=== PATIENT | male | born 1955 | race Caucasian/White ===

== ENCOUNTER 2016-08-09 14:48 | Emergency (ER) | payer SELFPAY ==
[~2016-08-09] VITALS: Ht 180.3 cm; Wt 113.6 kg
[2016-08-09 15:27] LABS: HEMATOCRIT 44.8 % (38.0-50.0); MCH 29.7 PG (29.0-34.0); MEAN PLAT.VOLUME 9.2 uM^3 (9.0-12.4); PLATELET COUNT 436 K/uL (156-360); RBC DIS.WIDTH-CV 13.7 % (11.8-14.6); RBC DIS.WIDTH-SD 45.1 % (39-53); RED BLOOD COUNT 4.98 M/uL (4.00-5.50)
[2016-08-09 15:36] LABS: CHLORIDE 109 mEq/L (99-109); POTASSIUM 4.2 mEq/L (3.7-5.4); SODIUM 140 mEq/L (136-147)
[2016-08-09 15:37] LABS: GLUCOSE 120 mg/dL (70-99)
[2016-08-09 15:39] LABS: ANION GAP 12 MEQ/L (2-14)
[2016-08-09 15:41] LABS: GFR ESTIMATE (CALCULATED) > 59 mL/min/
[2016-08-09 15:42] LABS: UREA NITROGEN (BUN) 14 mg/dL (9-23)
[2016-08-09 15:49] LABS: TROP-I INTERPRETATION NEGATIVE; TROPONIN-I < 0.01 ng/mL (0.0-0.30)
[2016-08-09] MEDS ORDERED: JANUMET 50/11 TABLET PO (16:17)
[2016-08-09] MEDS ORDERED: INVOKANA300 MG PO (16:17)
[2016-08-09] MEDS ORDERED: METFORMIN HCL500 MG PO (16:17)
[2016-08-09] MEDS ORDERED: DIOVAN160 MG PO (16:18)
[2016-08-09] MEDS ORDERED: SYNTHROID175 MCG PO (16:18)
[2016-08-09] MEDS ORDERED: AMARYL4 MG PO (16:18)
[2016-08-09] MEDS ORDERED: SIMVASTATIN40 MG PO (16:19)
[2016-08-09] MEDS ORDERED: MULTIVITAMIN1 EAC2 PO (16:19)
[2016-08-09] MEDS ORDERED: CRESTOR40 MG PO (16:19)
[2016-08-09] MEDS ORDERED: ASPIRIN325 MG PO (16:19)
[2016-08-09 16:20] LABS: D-DIMER ELISA 0.79 mg/L FEU (< 0.57)
[2016-08-09] MEDS ORDERED: VITAMIN D5000 UNI1 PO (16:20)
[2016-08-09] MEDS ORDERED: ALEVE220 M2 PO (16:20)
[2016-08-09 16:23] LABS: TOTAL BILIRUBIN 0.3 mg/dL (0.0-1.0)
[2016-08-09 16:24] LABS: ALKALINE PHOSPHATASE 67 IU/L (3-129)
[2016-08-09 16:26] LABS: DIRECT BILIRUBIN 0.2 mg/dL (0.0-0.3)
[2016-08-09 16:27] LABS: LIPASE 25 U/L (1.0-51.0)
[2016-08-09 16:43] LABS: ADD MIUA? NO; BILIRUBIN NEGATIVE; BLOOD NEGATIVE; COLOR YELLOW ((YELLOW)); GLUCOSE (STRIP) >=500; KETONES NEGATIVE; LEUKOCYTES NEGATIVE; NITRITE NEGATIVE; PROTEIN (STRIP) NEGATIVE; SPECIFIC GRAVITY 1.032 (1.000-1.030); UROBILINOGEN 0.2 MG/DL (0.2-1.0)
[2016-08-09] MEDS ORDERED: BENTYL10 MG PO (18:16)
[2016-08-09] MEDS ORDERED: ZOFRAN ODT4 MG PO (18:16)
[2016-08-09 18:48] VITALS: BP 127/90
== END 2016-08-09 18:49 | disposition home or self-care (01) ==
LOC: EME 14:48
PROVIDERS: Nurse Practitioner Family
DX: K57.30 Diverticulosis of large intestine without perforation or abscess without bleeding (principal); R10.9 Unspecified abdominal pain; E11.9 Type 2 diabetes mellitus without complications; E78.5 Hyperlipidemia, unspecified; I10 Essential (primary) hypertension; E03.9 Hypothyroidism, unspecified
CPT/HCPCS: 71020; 71275; 74177; 80048; 80076; 81003; 83690; 84484; 85027; 85379; 93005; 99281; 99284

== ENCOUNTER → 2016-08-29 | Outpatient (CLI) | payer OTHER ==
[~2016-08-29] MED LIST: ALEVE220 M2 PO; AMARYL4 MG PO; ASPIRIN325 MG PO; BENTYL10 MG PO; CRESTOR40 MG PO; DIOVAN160 MG PO; INVOKANA300 MG PO; JANUMET 50/11 TABLET PO; METFORMIN HCL500 MG PO; MULTIVITAMIN1 EAC2 PO; SIMVASTATIN40 MG PO; SYNTHROID175 MCG PO; VITAMIN D5000 UNI1 PO; ZOFRAN ODT4 MG PO
== END | disposition home or self-care (01) ==
LOC: RAD 08:54
DX: Z02.71 Encounter for disability determination (principal)
CPT/HCPCS: 73020; 73100